=== PATIENT | male | born 1985 | race Hispanic/Latino ===

== ENCOUNTER 2021-05-02 18:14 | Emergency (ER) | payer SELFPAY ==
[2021-05-02] MEDS ORDERED: Metoclopramide HCl 10 MG/2 ML VIAL ONE (18:51)
[2021-05-02] MEDS ORDERED: diphenhydrAMINE 50 MG/ML VIAL ONE (18:51)
[2021-05-02 18:57] LABS: #Basophils 0.1 thou/uL (0.0-0.2); #Eosinphils 0.2 thou/uL (0.0-0.7); #Monocytes 0.5 thou/uL (0.11-0.59); #Neutrophils 3.2 thou/uL (1.40-6.50); %Basophils 0.9 % (0.0-1.0); %Eosinophils 2.8 % (0.0-10.0); %Lymphocytes 33.1 % (21.0-51.0); %Neutrophils 54.3 % (42.0-75.0); Hemoglobin 14.3 g/dL (14.0-18.0); Mean Corpuscular HGB CONC 34.9 g/dL (32.0-36.0); Mean Corpuscular Hemoglobin 32.6 pg (27.0-31.0); Mean Corpuscular Volume 93.3 fL (78.0-98.0); Platelet Count 265 thou/uL (130-400); Red Blood Cell (RBC) Count 4.39 mill/uL (4.70-6.10)
[2021-05-02 19:21] LABS: ALT (SGPT) 12 U/L (8-55); AST (SGOT) 17 U/L (5-34); Albumin 4.2 g/dL (3.5-5.0); Alkaline Phosphatase 78 U/L (40-110); Anion Gap 11 mmol/L (10-20); BUN (Urea Nitrogen) 15 mg/dL (8.9-20.6); Bilirubin, Total 0.4 mg/dL (0.2-1.2); Calc. Creatinine Clearance 0 mL/min (70-130); Calcium 9.6 mg/dL (7.8-10.44); Carbon Dioxide 24 mmol/L (22-29); Chloride 110 mmol/L (98-107); Glucose 105 mg/dL (70-105); Potassium 4.4 mmol/L (3.5-5.1); Protein, Total 7.2 g/dL (6.0-8.3); Sodium 141 mmol/L (136-145)
[2021-05-02 19:26] LABS: CRP (Inflammatory) Less than 0.50 mg/dL (= or < 0.5); Magnesium 2.2 mg/dL (1.6-2.6)
[2021-05-02 23:16] LABS: SARS-CoV-2 PCR by NAA Not Detected (NotDetected)
== END 2021-05-02 20:35 | disposition home or self-care (01) ==
LOC: ERS 18:14
DX: R51.9 Headache, unspecified (principal); J06.9 Acute upper respiratory infection, unspecified; R53.83 Other fatigue; M54.2 Cervicalgia; R55 Syncope and collapse; I10 Essential (primary) hypertension; R10.816 Epigastric abdominal tenderness; K21.9 Gastro-esophageal reflux disease without esophagitis; Z20.822 Contact with and (suspected) exposure to COVID-19
CPT/HCPCS: 70450; 71045; 80053; 83735; 84484; 85025; 86140; 93005; 96365; 96375; J1200; J2765; U0003; U0005